=== PATIENT | female | born 1995 | race Caucasian/White ===

== ENCOUNTER 2016-12-26 21:44 | Emergency (ER) | payer OTHER ==
[~2016-12-26] VITALS: Ht 167.6 cm; Wt 99.0 kg
[2016-12-26 21:53] VITALS: TEMP 36.4; Ht 167.6 cm; Wt 99.0 kg
[2016-12-26] MEDS ORDERED: ATIVAN 1MG HOMEPACK PO ONE (22:15)
[2016-12-26] MEDS ORDERED: PANT40TA PO (22:18)
[2016-12-26] MEDS ORDERED: BCPILLS PO (22:18)
[2016-12-26] MEDS ORDERED: CNC/36 PO (22:18)
[2016-12-26] MEDS ORDERED: domperidone PO (22:18)
[2016-12-26] MEDS ORDERED: FLUO10CA48 PO (22:18)
[2016-12-26] MEDS ORDERED: LORA-741 PO (22:18)
[2016-12-26 22:23] VITALS: BP 128/73; PULSE 89; O2SAT 100
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
== END 2016-12-26 22:36 | disposition home or self-care (01) ==
LOC: EDUNIT# 21:44 → C.EDC 21:46
DX: S09.90XA Unspecified injury of head, initial encounter (principal); F41.9 Anxiety disorder, unspecified; V43.52XA Car driver injured in collision with other type car in traffic accident, initial encounter; Y92.488 Other paved roadways as the place of occurrence of the external cause; J45.909 Unspecified asthma, uncomplicated; Z87.01 Personal history of pneumonia (recurrent); Z83.79 Family history of other diseases of the digestive system; F17.210 Nicotine dependence, cigarettes, uncomplicated; Z79.3 Long term (current) use of hormonal contraceptives; Z79.899 Other long term (current) drug therapy